=== PATIENT | male | born 1990 | race Two or more races ===

== ENCOUNTER 2021-05-01 21:31 | Inpatient (IN) | payer OTHER ==
[~2021-05-01] VITALS: Ht 177.8 cm; Wt 94.1 kg
[2021-05-01 22:26] LABS: EOSINOPHILS % 7.6 % (0.0-5.0); HEMATOCRIT. 44.5 % (42.0-52.0); HEMOGLOBIN. 14.4 g/dL (14.0-18.0); LYMPHOCYTES % 36.5 % (20.0-50.0); MEAN CORPUSCULAR HEMOGLOBIN 27.2 pg (28.0-32.0); MEAN CORPUSCULAR VOLUME 83.9 fL (80.0-94.0); MEAN PLATELET VOLUME 8.8 fl (7.4-10.4); MONOCYTES % 8.6 % (2.0-8.0); NEUTROPHILS % 46.3 % (40.0-76.0); PLATELET 213 x1000/uL (130-400); RED CELL DISTRIBUTION WIDTH 12.6 % (11.6-14.6)
[2021-05-01 22:32] LABS: CHLORIDE 108 mEq/L (98-107)
[2021-05-01 22:38] LABS: ETHANOL BLOOD < 10 mg/dL
[2021-05-01 22:42] LABS: CREATINE KINASE 340 IU/L (39-308)
[2021-05-01] MEDS ORDERED: SODIUM CHLORIDE 0.9% 1,000 ML IV ONE ×2 (23:15)
[2021-05-01] MEDS ORDERED: IOHEXOL-350 100 ML BOTTLE ONE (23:40)
[2021-05-02] MEDS ORDERED: ACETAMINOPHEN 325MG TABLET PO ONE
[2021-05-02 00:23] LABS: CLARITY URINE CLEAR (CLEAR); COLOR URINE YELLOW (YELLOW); KETONES URINE NEGATIVE (NEGATIVE); LEUKOCYTE ESTERASE URINE NEGATIVE (NEGATIVE); NITRITE URINE NEGATIVE (NEGATIVE); OCCULT BLOOD URINE NEGATIVE (NEGATIVE); PH URINE 5.5 (4.5-8.0); PROTEIN URINE NEGATIVE (NEGATIVE); SPECIFIC GRAVITY URINE 1.045 (1.005-1.030); UROBILINOGEN URINE 0.2 E.U./dL (0.2-1.0)
[2021-05-02 00:43] LABS: *AMPHETAMINES SCREEN URINE NEGATIVE (NEGATIVE); *BARBITURATES SCREEN URINE NEGATIVE (NEGATIVE); *BENZODIAZEPINES SCREEN URINE NEGATIVE (NEGATIVE); *COCAINE SCREEN URINE NEGATIVE (NEGATIVE); CANNABINOID URINE SCREEN PRESUMTIVE POSITIVE (NEGATIVE); METHADONE URINE SCREEN NEGATIVE (NEGATIVE); OPIATES URINE SCREEN NEGATIVE (NEGATIVE)
[2021-05-02 00:45] LABS: PHENCYCLIDINE URINE SCREEN NEGATIVE (NEGATIVE)
[2021-05-02 05:39] VITALS: BP 120/63
[2021-05-02] MEDS ORDERED: ONDANSETRON HCL 4MG/2ML INJ IV PRN (08:45)
[2021-05-02] MEDS ORDERED: ACETAMINOPHEN 325MG TABLET PO PRN (08:45)
== END 2021-05-02 05:39 | disposition left against medical advice (07) | DRG 58 ==
LOC: ER 21:31 → MICUSO 23:06 → EDBEDREQ 23:09 → EDBEDREQTM 23:09 → 6WST 05-02 02:57 → MICUSO 05-02 05:34
PROVIDERS: ADMIT Internal Medicine; ATTEND Internal Medicine
DX: R20.2 Paresthesia of skin (principal); N17.9 Acute kidney failure, unspecified; R29.810 Facial weakness; R53.1 Weakness; Z20.822 Contact with and (suspected) exposure to COVID-19; Y93.C9 Activity, other involving computer technology and electronic devices
CPT/HCPCS: 36415; 70496; 70498; 71045; 80053; 80305; 80320; 81003; 82550; 84484; 85025; 87426; 99285; Q9967; G0480